=== PATIENT | male | born 1980 | race Caucasian/White ===

== ENCOUNTER 2024-07-27 07:06 | Outpatient (CLI) | payer OTHER, SELFPAY ==
--- NOTE | ~2024-07-27 | CT_ITS ---
Noncontrast CT scan of the right knee CLINICAL HISTORY: Pain TECHNIQUE: Axial noncontrast imaging of the right knee was performed. Sagittal and coronal reformatte d images were constructed. Dose reduction technique was used on this scan by utilizing automated expo sure control and iterative reconstruction technique. The dose-length product (DLP) was 579.73 mGy-cm. Findings: No acute fracture or dislocation seen. Osseous alignment is anatomic. The articular abnorma lity of the knee evident. No significant degenerative change. No erosive change. No significant joint effusion evident. There is a vasculature unremarkable. No soft tissue reality ev ident. IMPRESSION: No significant abnormality seen. Consider follow-up MR to better evaluate the soft tissue structures of the knee, as indicated. Reviewed, dictated and finalized at location . IMPRESSION: No significant abnormality seen. Consider follow-up MR to better evaluate the s oft tissue structures of the knee, as indicated.
== END 2024-07-27 07:07 | disposition home or self-care (01) ==
PROVIDERS: PCP Nurse Practitioner Family; Visit Provider Nurse Practitioner Family
DX: M25.561 Pain in right knee (principal)
CPT/HCPCS: 73700

== ENCOUNTER 2024-08-22 08:05 | Outpatient (CLI) | payer OTHER, SELFPAY ==
--- NOTE | ~2024-08-22 | MR_ITS ---
EXAMINATION: MR knee RT wo con DATE: 08/22/2024 08:31 INDICATION: Right knee pain TECHNIQUE: Magnetic resonance imaging (MRI) of the right knee was performed without intravenous contr ast. Sequences included coronal PD-weighted FSE, coronal PD-weighted FS FSE, sagittal T2-weighted FS E, sagittal PD-weighted FS FSE and axial PD weighted fat saturated FSE. COMPARISON: None. FINDINGS: Medial compartment: Medial meniscus is normal. Articular cartilage is normal. Lateral compartment: Lateral meniscus is normal. Articular cartilage is normal. Patellofemoral compartment: Articular cartilage is normal. Ligaments and tendons: Anterior and posterior cruciate ligaments are normal. The medial collateral ligament and fibular chrissy ateral ligament complex are normal. Mild distal quadriceps tendinopathy. Patellar tendon is normal. T he visualized medial and lateral hamstring tendons as well as the iliotibial band are normal. Fluid: Physiologic amount of fluid in the joint space. No loose osteochondral bodies identified. Osseous/other: Normal marrow signal. No fracture or pathologic marrow replacing process. There is thickening and inc reased fluid signal of the superficial suprapatellar fat pad consistent with fat pad impingement synd fredi. IMPRESSION: 1. Prominent thickening and increased fluid signal the superficial suprapatellar fat pads suggestive of fat pad impingement syndrome and mild distal quadriceps tendinopathy. 2. Otherwise normal MRI of the right knee with normal menisci, cartilage and stabilizing ligaments. Reviewed, dictated and finalized at location A. IMPRESSION: 1. Prominent thickening and increased fluid signal the superficial suprapatella r fat pads suggestive of fat pad impingement syndrome and mild distal quadricep s tendinopathy. 2. Otherwise normal MRI of the right knee with normal menisci, cartilage and st abilizing ligaments.
== END 2024-08-22 08:06 | disposition home or self-care (01) ==
LOC: ANHIMG 08:08
PROVIDERS: PCP Nurse Practitioner Family; Visit Provider Nurse Practitioner Family
DX: R29.898 Other symptoms and signs involving the musculoskeletal system (principal)
CPT/HCPCS: 73721